=== PATIENT | male | born 1950 | race Caucasian/White ===

== ENCOUNTER → 2019-02-13 | Outpatient (CLI) | payer OTHER ==
--- NOTE | 2019-02-27 20:19 | SLE ---
[facility] [place] [address] POLYSOMNOGRAPHY STUDY Name: ARMIDA NI Room #: REG [facility].#: [id number] Admission: 02/13/19 ������������������ Attend Phys: Dmitry Gonzalez MD Discharge: ������������������ Date of : 50 Report #: [id number] THIS REPORT FOR: //name// CC: Dmitry Gray MD ATTENDING PHYSICIAN: Dr. Benja Gray. The patient is a 68-year-old who weighs 285 pounds with a BMI of 36.6. The patient's [place] score was 6. The patient returned to the sleep lab for CPAP titration study. During the night study, the patient spent 516 minutes in bed and slept for 371 minutes with a sleep efficiency of 72%. Sleep latency was 18.5 minutes with a REM latency of 98 minutes. Overall sleep architecture showed normal stage 1 sleep, increased stage 2 sleep, absent N3 sleep and normal REM sleep. EKG monitoring revealed an average heart rate of 71 beats per minute. No sustained arrhythmias observed. PLMS were seen at an index of 68 per hour and 9 per hour caused EEG arousals. The patient was started on CPAP at 5 cm of water and titrated up to 16 cm of water. At the final pressure, the patient slept for 65 minutes. The patient had supine as well as REM sleep. The patient's AHI was reduced to 0.9 per hour and oxygen saturation remained above 91%. ASSESSMENT: 1. Sleep apnea diagnosed by previous sleep study. 2. Severe periodic limb movements of sleep. RECOMMENDATIONS: 1. CPAP at 16 cm of water completely eliminated the patient's sleep apnea and should be used on a nightly basis. 2. Follow up in 4-6 weeks to assess compliance with CPAP and to document clinical improvement. 3. Weight loss is strongly advised. 4. Avoid [employer] depressants. 5. Cautioned regarding driving until symptoms of sleep apnea have resolved with the use of CPAP. [facility] [address] [place] [address] POLYSOMNOGRAPHY STUDY Name: ARMIDA NI Room #: REG [facility]#: [id number] Admission: 02/13/19 ������������������ Attend Phys: Dmitry Gonzalez MD Discharge: ������������������ Date of : 50 Report #: [id number] 6. Patient should also be further evaluated for symptoms of restless legs during the day. ��������������������������������������������� <ELECTRONICALLY SIGNED> ���������������������������������������� By: Dmitry Gonzalez MD ��������������������������������������������� 02/27/192018 1119 1325 Dmitry Gonzalez MD /nt
== END ==
LOC: SLEEPLAB 07-27 14:53
DX: G47.33 Obstructive sleep apnea (adult) (pediatric) (principal); G47.61 Periodic limb movement disorder; Z99.89 Dependence on other enabling machines and devices

== ENCOUNTER → 2019-03-27 | Outpatient (CLI) | payer OTHER | LOC: CAT 13:24 | DX: Z13.6 Encounter for screening for cardiovascular disorders (principal); I25.10 Atherosclerotic heart disease of native coronary artery without angina pectoris; E78.00 Pure hypercholesterolemia, unspecified ==

== ENCOUNTER → 2020-05-27 | Outpatient (CLI) | payer OTHER | LOC: CAT 13:52 | PROVIDERS: ATTEND Internal Medicine Pulmonary Disease | DX: Z12.2 Encounter for screening for malignant neoplasm of respiratory organs (principal); Z87.891 Personal history of nicotine dependence; I25.10 Atherosclerotic heart disease of native coronary artery without angina pectoris; M47.814 Spondylosis without myelopathy or radiculopathy, thoracic region ==

== ENCOUNTER → 2020-05-27 | Outpatient (CLI) | payer OTHER | LOC: SJCVC 13:10 | PROVIDERS: ATTEND Internal Medicine Cardiovascular Disease | DX: R93.1 Abnormal findings on diagnostic imaging of heart and coronary circulation (principal); E11.9 Type 2 diabetes mellitus without complications; I10 Essential (primary) hypertension; E78.00 Pure hypercholesterolemia, unspecified; G47.33 Obstructive sleep apnea (adult) (pediatric); Z99.89 Dependence on other enabling machines and devices; Z82.49 Family history of ischemic heart disease and other diseases of the circulatory system; F17.210 Nicotine dependence, cigarettes, uncomplicated; Z79.899 Other long term (current) drug therapy; Z79.84 Long term (current) use of oral hypoglycemic drugs; Z88.0 Allergy status to penicillin ==

== ENCOUNTER → 2021-06-04 | Outpatient (CLI) | payer OTHER | LOC: CAT 14:02 | PROVIDERS: ATTEND Internal Medicine Pulmonary Disease | DX: Z12.2 Encounter for screening for malignant neoplasm of respiratory organs (principal); Z87.891 Personal history of nicotine dependence ==